=== PATIENT | female | born 1950 | race Caucasian/White ===

== ENCOUNTER 2022-03-17 10:46 | Emergency (ER) | payer MEDICARE, SELFPAY ==
[2022-03-17 10:54] VITALS: BP 138/65; PULSE 101; RESP 20; TEMP 36.4; O2SAT 90
--- NOTE | 2022-03-17 11:15 | PC.NURSE ---
Pt came to desk and questioning how much longer pt states she doesn't want to wait. explained process to pt. pt went back to room stating she will wait a bit longer.
--- NOTE | 2022-03-17 11:24 | PC.NURSE ---
Cher Ruiz to room to do rapid Covid test, pt informed test will take 15 minutes for results. pt states she is done and walked out.
== END 2022-03-17 11:24 | disposition left against medical advice (07) ==
PROVIDERS: Emergency Provider Registered Nurse; PCP Internal Medicine
DX: Z53.21 Procedure and treatment not carried out due to patient leaving prior to being seen by health care provider (principal)
CPT/HCPCS: 99199